=== PATIENT | female | born 1950 | race African-American/Black ===

== ENCOUNTER → 2018-10-01 | Outpatient (CLI) | payer MEDICARE, BC | END | disposition home or self-care (01) | LOC: PCVCCLINIC 11:00 | PROVIDERS: ATTEND Internal Medicine | DX: G45.9 Transient cerebral ischemic attack, unspecified (principal); R07.89 Other chest pain; R06.09 Other forms of dyspnea; R00.2 Palpitations; E11.9 Type 2 diabetes mellitus without complications; I10 Essential (primary) hypertension; E78.00 Pure hypercholesterolemia, unspecified; Z88.0 Allergy status to penicillin | CPT/HCPCS: 93005; G0463 ==

== ENCOUNTER → 2018-10-08 | Outpatient (CLI) | payer MEDICARE, BC ==
[~2018-10-08] MED LIST: REGADENOSON 0.4 MG/5 ML DISP.SYRIN. IV ONE
--- NOTE | 2018-10-10 11:47 | PCVCIMAG ---
APPROVED REPORT Imaging Protocol: Rest Tc-99m/Stress Tc-99m 1 day Study performed: 10/08/2018 10:12:45 Indication: Chest pain, Dyspnea, Palpitations Patient Location: Out-Patient Stress Nurse: Sarah Wallis RN, Ariella Stanley RN SD Tech:Perlita ReynoldsFELI murphyMT Ht: 5 ft 3 in Wt: 208 lbs BSA: 1.97 m2 HR: 57 bpm BP: 144/94 mmHg BMI: 36.84 Rhythm: Sinus Bradycardia, 1st degree AV block Medical History Medical History: Hyperlipidemia, HTN, Diabetes, Former Smoker Medications: Amlodipine, Catapres, HCTZ, Tramadol Allergies: PCN, Gabapentin, Sulfa Cardiac Risk Factors: Age Pretest Chest Pain Characteristics: No chest pain Exercise History: Sedentary Resting Data Rest SPECT myocardial perfusion imaging was performed in supine position 454 minutes following the intravenous injection of 14.6 mCi of Tc-99m Sestamibi. Time of rest injection: 0930 Date: 10/08/2018 Administration Route: IV Administration Site: Right AC Pharmacologic Stress Pharmacologic stress test was performed by injecting Regadenoson 0.4 mg IV push over 10-15 seconds immediately followed by the intravenous injection of 42.9 mCi of Tc-99m Sestamibi. Time of stress injection: 1100 Date: 10/08/2018 Administration Route: IV Administration Site: Right AC Gated Stress SPECT was performed 45 minutes after stress injection. The images were gated to evaluate regional wall motion and calculate left ventricular ejection fraction. Stress Test Details Stress Test: Pharmacologic stress testing performed using 0.4 mg of regadenoson per 5 mL given IV over 10 seconds. Reason for pharmacologic stress test: physical limitation. HRMax Heart Rate (APMHR): 151 bpm Resting HR: 57 bpmTarget HR (85% APMHR): 128 bpm Max HR Achieved: 88 bpm % of APMHR: 58 HR response to stress: 144 BP Resting BP: 94/181 mmHg Max BP: 96/174 mmHg Recovery BP: 89/ mmHg ECG Resting ECG: Sinus Bradycardia, 1st degree AV block Stress ECG: Sinus Rhythm, 1st degree AV block Arrhythmia: None Recovery ECG: Sinus Rhythm, 1st degree AV block Clinical Reason for Termination: Completed protocol Stress Symptoms: Abdominal discomfort, None, Abdominal discomfort, Chest pain Symptoms resolved with caffeine. Stress ECG Conclusion 1. adequate response to iv lexiscan 2. inadequate heart rate for ecg diagnosis Study Data Post stress, the left ventricular ejection was 71%.. SSS: 15 SRS: 19 SDS: 0 TID = 0.95. Perfusion There is a large area of moderately reduced uptake in the mid and apical segment of the inferior wall which is seen on the stress images as well as the resting images. This area thickens and moves normally and is most consistent with attenuation artifact. Wall Motion Normal left ventricular wall motion. Nuclear Conclusion ECG Findings: non-diagnostic Clinical Findings: negative for ischemia Nuclear Findings: negative for ischemia Exercise Capacity: not assessed Left Ventricular Function: normal 1. low risk study 2. post stress lvef 71% with normal wall motion <Conclusion> 1. adequate response to iv lexiscan 2. inadequate heart rate for ecg diagnosis
== END | disposition home or self-care (01) ==
LOC: PCVCIMAG 09:14
PROVIDERS: ATTEND Internal Medicine
DX: R00.2 Palpitations (principal); R06.00 Dyspnea, unspecified; E78.5 Hyperlipidemia, unspecified; I10 Essential (primary) hypertension; E11.9 Type 2 diabetes mellitus without complications; Z87.891 Personal history of nicotine dependence
CPT/HCPCS: 78452; 93017; A9500; J2785